=== PATIENT | female | born 2000 | race Caucasian/White ===

== ENCOUNTER 2021-10-22 15:42 | Outpatient (CLI) | payer BC, MEDICAID ==
[~2021-10-22] VITALS: Ht 177.8 cm; Wt 115.5 kg
--- NOTE | 2021-10-22 15:55 | NUR ---
1555 PT AMBULATORY TO UNIT WITH SUPPORT PERSON. PT ABLE TO VOID WITH CLEAN CATCH UA COMPLETED AT THIS TIME. PT IN BED, LEFT LATERAL, AND COMFORTABLE. EFM AND TOCO TRACING STARTED. BP READINGS SET Q15 MINUTES. PT IS RELAXED AND AGREEABLE TO POC. WILL CONTINUE TO MONITOR.
[2021-10-22] MEDS ORDERED: TOPROL XL100 MG PO (15:59)
[2021-10-22] MEDS ORDERED: ASPIRIN 81M81 MG/TA2 PO (16:00)
[2021-10-22] MEDS ORDERED: PRENATAL (16:00)
[2021-10-22 16:10] VITALS: BP 141/94; PULSE 75
[2021-10-22 16:13] LABS: COLLECTION METHOD CLEAN CATCH
[2021-10-22 16:21] LABS: BASO % 0.2 % (0.0-2.0); EOS # 0.3 K/mm3 (0.0-0.7); EOS % 3.8 % (0.0-4.0); GRAN # 5.2 K/mm3 (1.4-6.5); GRAN % 59.4 % (42.2-75.2); HEMOGLOBIN 12.6 g/dl (12.5-16.0); LYMPH # 2.5 K/mm3 (1.2-3.4); LYMPH % 28.4 % (20.0-51.0); MEAN CELL VOLUME 86 fl (80.0-100.0); MEAN CORPUSCULAR HEMOGLOBIN 29 pg (27-31); MEAN CORPUSCULAR HGB CONC 34 g/dl (33.0-37.0); MEAN PLATELET VOLUME 9.5 fl (7.4-10.4); MONO # 0.7 K/mm3 (0.1-0.6); PLATELET COUNT 252 K/mm3 (130-400)
[2021-10-22 16:23] LABS: PH 6.5 (5.0-8.5); URINE APPEARANCE Clear (CLEAR/HAZY); URINE BLOOD Negative (NEGATIVE); URINE COLOR Straw (YELLOW); URINE GLUCOSE Negative (NEGATIVE); URINE KETONE Negative (NEGATIVE); URINE NITRATE Negative (NEGATIVE); URINE PROTEIN(semi-quant) Negative (NEGATIVE); URINE UROBILINOGEN 0.2 E.U/dL (0.2-1.0)
[2021-10-22 16:24] LABS: MUCOUS Present (NOT PRESENT); URINE BACTERIA Rare /hpf (NONE SEEN)
[2021-10-22 16:28] VITALS: BP 133/88; PULSE 68
[2021-10-22 16:29] LABS: HEMATOCRIT 36.9 % (37.0-47.0)
[2021-10-22 16:30] VITALS: BP 141/92; PULSE 82; TEMP 98.7
[2021-10-22 16:33] LABS: BILIRUBIN,TOTAL 0.2 mg/dL (0.2-1.2); CALCIUM 9.3 mg/dL (8.4-10.2); CREATININE, serum 0.64 mg/dL (0.57-1.11); POTASSIUM 4.1 mmol/L (3.5-4.5); TOTAL PROTEIN 6.2 gm/dL (6.2-8.1)
--- NOTE | 2021-10-22 16:55 | NUR ---
1655 PT DISCHARGED FROM UNIT PER DR. CHRISTOPHER ORDER. PT ADVISED TO CONTINUE WITH NORMAL BLOOD PRESSURE TREATMENT PRESCRIBED BY DOCTOR. TOLD TO CALL WITH ANY QUESTIONS. PT STABLE.
[2021-10-22 17:00] VITALS: BP 126/88; PULSE 77
== END 2021-10-22 16:55 | disposition home or self-care (01) ==
LOC: LDRO 15:42
PROVIDERS: Obstetrics & Gynecology
DX: Z34.93 Encounter for supervision of normal pregnancy, unspecified, third trimester (principal); Z3A.35 35 weeks gestation of pregnancy

== ENCOUNTER 2021-11-10 19:42 | Inpatient (IN) | payer BC, MEDICAID ==
[~2021-11-10] VITALS: Ht 175.3 cm; Wt 116.4 kg
[2021-11-10] VITALS (7 sets, daily range): BP systolic 123–174; BP diastolic 64–97; PULSE 65–75; TEMP 98.2
[~2021-11-10 19:42] MED LIST: ASPIRIN 81M81 MG/TA2 PO; PRENATAL; TOPROL XL100 MG PO
--- NOTE | 2021-11-10 19:45 | NUR ---
G1 at 38 weeks and 2 days arrives to unit with spontaneous rupture of membranes. Pt reports feeling gush of clear fluid around 1830 and has continued to leak since. Pt denies feeling contractions, denies vaginal bleeding and reports feeling good movement. Pt has a history of hypertension and is on metoprolol for this. Moderate edema noted to bilateral lower extremeties. Denies headaches, changes in vision, or RUQ pain. Clean gown on. Pt oriented to room, call light within reach, bed in low and locked position. US and toco explained and applied. Vitals obtained. Admission assessment started. Pt appears to be grossly ruptured on admission, positive amnitrace. SVE /-3.
--- NOTE | 2021-11-10 21:00 | NUR ---
18G IV started in left forearm after 1 attempt. Admission labs obtained off IV start. Consents reviewed and signed with patient and significant other. All questions answered.
[2021-11-10 21:05] LABS: COLLECTION METHOD CLEAN CATCH
[2021-11-10 21:16] LABS: BASO % 0.3 % (0.0-2.0); EOS # 0.4 K/mm3 (0.0-0.7); EOS % 3.5 % (0.0-4.0); GRAN # 5.6 K/mm3 (1.4-6.5); GRAN % 54.5 % (42.2-75.2); HEMATOCRIT 38.5 % (37.0-47.0); HEMOGLOBIN 13.2 g/dl (12.5-16.0); LYMPH # 3.6 K/mm3 (1.2-3.4); LYMPH % 34.7 % (20.0-51.0); MEAN CELL VOLUME 85 fl (80.0-100.0); MEAN CORPUSCULAR HEMOGLOBIN 29 pg (27-31); MEAN CORPUSCULAR HGB CONC 34 g/dl (33.0-37.0); MEAN PLATELET VOLUME 10.2 fl (7.4-10.4); MONO # 0.7 K/mm3 (0.1-0.6); MONO % 6.8 % (1.7-9.3); PLATELET COUNT 248 K/mm3 (130-400); RED BLOOD COUNT 4.51 M/mm3 (4.10-5.30); REDCELL DISTRIBUTION WIDTH-CV 12.9 % (11.5-14.5)
[2021-11-10 21:17] LABS: PH 5.5 (5.0-8.5); URINE APPEARANCE Clear (CLEAR/HAZY); URINE BLOOD TRACE-INTACT (NEGATIVE); URINE COLOR Yellow (YELLOW); URINE GLUCOSE Negative (NEGATIVE); URINE KETONE Negative (NEGATIVE); URINE NITRATE Negative (NEGATIVE); URINE PROTEIN(semi-quant) Negative (NEGATIVE); URINE UROBILINOGEN 0.2 E.U/dL (0.2-1.0)
[2021-11-10 21:22] LABS: MUCOUS Present (NOT PRESENT); SQUAMOUS EPITHELIAL 0-2 /hpf (0-10); URINE BACTERIA None Seen /hpf (NONE SEEN); URINE RBC 0-2 /hpf (0-2)
[2021-11-10 21:26] LABS: ALBUMIN 3.3 gm/dL (3.5-5.0); BILIRUBIN,TOTAL 0.3 mg/dL (0.2-1.2); CALCIUM 9.6 mg/dL (8.4-10.2); CREATININE, serum 0.75 mg/dL (0.57-1.11); POTASSIUM 4.3 mmol/L (3.5-4.5); TOTAL PROTEIN 6.6 gm/dL (6.2-8.1)
[2021-11-11] VITALS (68 sets, daily range): BP systolic 107–173; BP diastolic 58–104; PULSE 60–126; TEMP 97.5–98.4
--- NOTE | 2021-11-11 03:05 | NUR ---
Pt denies feeling contractions, requesting to start augmenting with pitocin now. Will initiate now and increase slowly. Pitocin initated at this time at 2 mu/min.
--- NOTE | 2021-11-11 07:22 | NUR ---
0715- PT SITTING ON BIRTHING BALL. US ADJUSTED BY RN. FHR IN THE 130S.
--- NOTE | 2021-11-11 09:00 | NUR ---
0823-PT OOB AMBULATING ON L&D UNIT WITH TELEMETRY MONITORING. REACTIVE TRACING WITH FHR IN THE 130S AT THIS TIME. PT TOLERATING CONTRACITONS WELL PER PT REPORT.
--- NOTE | 2021-11-11 09:17 | NUR ---
0908-PT BACK IN BED. PT PLACED IN SEMI-FOWLERS POSITION WITH LEFT TILT. PT COPING WITH LABOR. FHR IN THE 130S AT THIS TIME WITH MODERATE VARIABLILTIY. ONE INCIDENCE OF LATE DECELERATION @ 0911. IV BOLUS GIVEN AND PT PLACED IN LL POSITION. CATEGORY 1 STRIP AT THIS TIME.
--- NOTE | 2021-11-11 09:55 | NUR ---
0942-PT OOB IN THE RESTROOM WITH TELEMETRY MONITORING. FHR IN THE 130S AT THIS TIME. PT COPING WELL WITH CONTRACTIONS. 0954-PT AMBULATING ON THE UNIT WITH TELEMETRY MONITORING. MONITORS ADJUSTED BY RN.
--- NOTE | 2021-11-11 10:17 | NUR ---
1000-PT BACK IN BED AND PLACED IN RL POSITION WITH PEANUT BALL. US AND TOCO ADJUSTED BY RN. PT C/O CONTRACTIONS INTENSIFYING. PAIN 5 OUT OF 10. PT DENIES EPIDURAL AT THIS TIME. FHR IN THE 130S AT THIS TIME WITH MODERATE VARIABILITY.
--- NOTE | 2021-11-11 13:13 | NUR ---
1050-PT REQUESTING EPIDURAL AT THIS TIME. PT C/O PAIN 7 OUT OF 10. CATEGORY 1 STRIP AT THIS TIME. ANESTHESIA AND MD NOTIFIED. 1057-PT SITTING FOR EPIDURAL. UNABLE TO CONTINOUSLY MONITOR FHR. RN CONTINOUSLY AT BEDSIDE. PULSE OX ON, IV BOLUS INITIATED, AND AND TIME OUT COMPLETED.
--- NOTE | 2021-11-11 13:40 | NUR ---
1124-PT LAYING DOWN AFTER EPIDURAL. FHR IN THE 120S WITH MODERATE VARIABILITY. PT PAIN IMPROVING. VS WNL. 1125-PT REPOSITIONED IN RL WITH PEANUT BALL. US AND TOCO READJUSTED. 1128-FHR IN THE 90S AT THIS TIME. PT REPOSITIONED ON LEFT SIDE. US ADJUSTED. 1129-ADDITIONAL HELP CALLED. CHARGE NURSE AND ANESTHESIA AT BEDSIDE. 1130-VS WNL. FHR IN THE 80S AT THIS TIME. PT REPOSITIONED ON THE RIGHT SIDE. IV BOLUS RUNNING. 1131-SVE PERFORMED BY Arnel GUO RN /. FSE PLACED BY Arnel GUO RN. FHR IN THE 100S WITH MODERATE VARIABILITY. PT REPOSITONED ON LEFT SIDE. 1134-FHR IN THE 100S AT THIS TIME. PT PLACED IN KNEE CHEST POSITON. ABDOMEN PALPATES SOFT BETWEEN CONTRACTIONS. 1136- PITOCIN TURNED OFF. FHR IN THE 120S AT THIS TIME WITH MINIMAL VARIABLITLY. CARE PLAN UPDATED.
--- NOTE | 2021-11-11 16:19 | NUR ---
1500-DR. CHRISTOPHER AT BEDSIDE. SVE PER DR. CHRISTOPHER. 1503- FHR DECREASING TO THE 50S. PT REPOSITONED ON THE LEFT SIDE. SVE PER DR. CHRISTOPHER -. 1504-PITOCIN TURNED OFF. ADDITIONAL HELP CALLED. IV BOLUS STARTED. FHR IN THE 80S. 02 MASK PLACED ON PT AT 10L. 1505-PT REPOSITIONED ON RIGHT SIDE. DR. CHRISTOPHER PERFORMING SCALP STIMULATION BETWEEN CONTRACTIONS. ACCELERATIONS NOTED. FHR IN THE 100S. FSE REMOVED AND US PLACED. FHR IN THE 110S. CARE PLAN UPDATED.
--- NOTE | 2021-11-11 19:04 | NUR ---
1735-PT C/O OF VAIGNAL PRESSURE. SVE 9/100/0 PER Lei MORALES RN. PT HAVING LATE DECELERATIONS WITH CONTRACTIONS INTO THE 70S. PT REPOSITIONED ON LEFT SIDE. ABDOMEN PALPATES SOFT IN BETWEEN CONTRACTIONS. 1736-O2 MASK PLACED ON PT AT 10L. IV BOLUS INITIATED. 1738-PT REPOSITIONED ON RIGHT SIDE. FHR IN THE 110S WITH MODERATE VARIABILITY AND INTERMITTENT VARIABLES. 1743- ROLES NOTIFIED VIA TELEPHONE. NO NEW ORDERS GIVEN.
[2021-11-11] MEDS ORDERED: MOTRIN 800800 MG/TAB PO (19:46)
--- NOTE | 2021-11-11 19:50 | NUR ---
175-RN AT BEDSIDE. PT C/O OF VAGINAL PAIN. PT REPOSITIONED ON LEFT SIDE. PT DENIES RELEIF. SVE PERFORMED BY Lie MORALES RN LIP/100/+1. FHR IN THE 120S WITH VARIABLE DECELERATIONS AND MODERATE VARIABILITY. 175-PT REPOSITIONED ON RIGHT SIDE. CHARGE NURSE AT BEDSIDE. 1754-PT REPOSITIONED ON LEFT SIDE. FHR IN THE 110S WITH LATE DECELERATIONS. 1757-DR. MENDEZ CALLED TO UNIT VIA TELEPHONE. FHR IN THE 80S AT THIS TIME. ADDITIONAL HELP CALLED TO THE ROOM. 1800. PT PLACED IN KNEE CHEST POSITION WITH ASSISTANCE FROM RN AND ADDITIONAL MINE TECHNICIAN'S. FHR IN THE 70S. ABDOMEN PALPATES SOFT IN BETWEEN CONTRACTIONS. 180-PITOCIN TURNED OFF. IV FLUIDS RUNNING AND 02 MASK ON. FHR IN THE 60S. 1807-DR. MENDEZ AT BEDSIDE. SVE 10/100/+1. FHR IN THE 80S. PT PLACED IN LITHIOTOMY POSITION AND PUSHING WITH CONTRACTIONS. 1816-PT PUSHING WITH CONTRACTIONS. FHR HAVING RECURRENT LATE DECELERATIONS. PT TOLERATING PUSHING WELL. DR. MENDEZ TO PLACE FORCEPS. RISKS AND BENEFITS EXPLAINED TO PT ON FORCEP DELIVERY. PT VERBALIZED UNDERSTANDING. FORCEPS PLACED ON HEAD BY DR. MENDEZ. 1817-TRACTION APPLIED BY DR. MENDEZ WHILE PT PUSHING. FHR IN THE 110S WITH LATE DECELERATIONS. 1818-SECOND PULL APPLIED BY DR. MENDEZ. FORCEPS REMOVED FROM HEAD. 182- EPISIOTOMY DONE BY DR. MENDEZ. OF INFANT HEAD. NUCHAL X1. 182- OF PLACENTA BY DR. MENDEZ. PITOCIN BOLUS INFUSING. PT COPING WELL AND DENIES ANY PAIN. UPDATED CARE PLAN.
[2021-11-12 01:00] VITALS: BP 130/88; PULSE 90; TEMP 98.3
[2021-11-12 06:30] VITALS: BP 148/86; PULSE 89; TEMP 97.8
--- NOTE | 2021-11-12 09:26 | NUR ---
Initial visit; Parents thanked Swimmer for offering congratulations and God's blessings for the of their daughter. Swimmer thanked family for choosing [facility].
--- NOTE | 2021-11-12 15:20 | NUR ---
REPORT GIVEN TO VANNA COLLINS.
[2021-11-12 17:45] VITALS: BP 148/84; PULSE 76; TEMP 98
[2021-11-12 21:45] VITALS: BP 107/60; PULSE 89; TEMP 98.4
[2021-11-13 03:00] VITALS: BP 141/91; PULSE 88; TEMP 98.4
[2021-11-13 07:19] VITALS: BP 154/96; PULSE 68; TEMP 97.4
== END 2021-11-13 10:45 | disposition home or self-care (01) | DRG 806 ==
LOC: LDRO 19:42 → LDR 20:20 → OB 11-11 22:00
PROVIDERS: ADMIT Obstetrics & Gynecology
PROC: 10D07Z3 Extraction of Products of Conception, Low Forceps, Via Natural or Artificial Opening (ICD-10-PCS; principal; 2021-11-11)
PROC: 0W8NXZZ Division of Female Perineum, External Approach (ICD-10-PCS; 2021-11-11)
PROC: 3E033VJ Introduction of Other Hormone into Peripheral Vein, Percutaneous Approach (ICD-10-PCS; 2021-11-11)
DX: O76 Abnormality in fetal heart rate and rhythm complicating labor and delivery (principal); O10.92 Unspecified pre-existing hypertension complicating childbirth; Z37.0 Single live birth; O99.214 Obesity complicating childbirth; O69.81X0 Labor and delivery complicated by cord around neck, without compression, not applicable or unspecified; Z3A.38 38 weeks gestation of pregnancy; Z53.29 Procedure and treatment not carried out because of patient's decision for other reasons; O46.93 Antepartum hemorrhage, unspecified, third trimester
CPT/HCPCS: J0690; J2590; J7120